=== PATIENT | male | born 1965 | race Caucasian/White ===

== ENCOUNTER → 2017-03-07 | Outpatient (CLI) | payer OTHER ==
[~2017-03-07] MED LIST: AMLO5TAB2 PO; LISI-515 PO; MULT-135 PO; SUBO8MIS SL
[2017-03-07 09:00] LABS: AUTOMATED NEUTROPHIL # 5.6 TH/MM3 (1.8-7.7); BASOPHIL # 0.1 TH/MM3 (0-0.2); BASOPHIL % 0.9 % (0.0-2.0); EOSINOPHIL # 0.1 TH/MM3 (0-0.4); EOSINOPHIL % 1.6 % (0.0-4.0); HEMATOCRIT 49.5 % (39.0-51.0); HEMO FLAGS DIFF FINAL; LYMPH % 26.1 % (9.0-44.0); LYMPHOCYTE # 2.3 TH/MM3 (1.0-4.8); MEAN CELL VOLUME 89.4 FL (80.0-100.0); MEAN CORPUSCULAR HEMOGLOBIN 30.3 PG (27.0-34.0); MEAN CORPUSCULAR HGB CONC 33.9 % (32.0-36.0); MONO % 8.6 % (0.0-8.0); NEUT % 62.8 % (16.0-70.0); PLATELET COUNT 206 TH/MM3 (150-450); RED BLOOD COUNT 5.54 MIL/MM3 (4.50-5.90); RED CELL DISTRIBUTION WIDTH 13.2 % (11.6-17.2)
[2017-03-07 09:02] LABS: BLOOD, URINE NEG (NEG); COMMENT (UR) CULT NOT INDICATED; CULTURE IF INDICATED CULT NOT INDICATED; GLUCOSE,URINE NEG (NEG); KETONE, URINE NEG (NEG); MUCUS URINE FEW /lpf (OCC); NITRITE,URINE NEG (NEG); URINE COLOR YELLOW (YELLW/STRAW)
--- NOTE | 2017-03-07 09:11 | RADRPT ---
EXAM DATE/TIME: 03/07/2017 08:45 [place] COMPARISON: No previous studies available for comparison. INDICATIONS : Evaluate for Pneumonia, Pneumothorax, and communicable diseases. Pre-op mass on buttocks. MEDICAL HISTORY : None. SURGICAL HISTORY : None. ENCOUNTER: Initial ACUITY: 1 day PAIN SCORE: 0/10 LOCATION: Bilateral chest FINDINGS: PA and lateral views of the chest demonstrate the lungs to be symmetrically aerated without evidence of mass, infiltrate or effusion. The cardiomediastinal contours are unremarkable. Osseous structure s are intact. CONCLUSION: No acute disease. Jovany Jones MD FACR on March 07, 2017 at 9:09 Board Certified Radiologist. This report was verified electronically.
[2017-03-07 09:52] LABS: ALKALINE PHOSPHATASE 81 U/L (45-117); ALT (GPT) 49 U/L (12-78); ANION GAP 7 MEQ/L (5-15); AST (GOT) 17 U/L (15-37); BICARBONATE 28.8 MEQ/L (21.0-32.0); BLOOD UREA NITROGEN 17 MG/DL (7-18); CHLORIDE 102 MEQ/L (98-107); GLOMERULAR FILTRATION RATE 94 ML/MIN (>89); GLUCOSE,FASTING 105 MG/DL (74-99); POTASSIUM 4.3 MEQ/L (3.5-5.1); SODIUM (NA) 138 MEQ/L (136-145); TOTAL BILIRUBIN ADULT 0.3 MG/DL (0.2-1.0)
--- NOTE | 2017-03-07 22:03 | EKG ---
Date Performed: 03/07/2017 Time Performed: 08:16:36 PTAGE: 51 years EKG: Sinus rhythm NONSPECIFIC T-WAVE ABNORMALITY BORDERLINE ECG NO PREVIOUS TRACING DOCTOR: Tre Sanchez Interpretating Date/Time 03/07/2017 22:02:27
== END ==
LOC: CPRE 07:54
PROVIDERS: ATTEND Colon & Rectal Surgery
DX: Z01.812 Encounter for preprocedural laboratory examination (principal); Z01.811 Encounter for preprocedural respiratory examination; Z01.810 Encounter for preprocedural cardiovascular examination; D36.7 Benign neoplasm of other specified sites; R94.31 Abnormal electrocardiogram [ECG] [EKG]
CPT/HCPCS: 36415; 71020; 80053; 81001; 85025; 93005

== ENCOUNTER 2017-03-12 12:13 | Observation (INO) | payer OTHER ==
[~2017-03-12] VITALS: Ht 185.4 cm; Wt 135.6 kg
--- NOTE | 2017-03-12 10:05 | PD.HP.UP ---
H&P Update Note The Pre-Admit History and Physical Examination regarding the above named patient was reviewed (including, but not limited to, vital signs, heart, lungs, co-morbid conditions), and upon re-examination it is noted that: the patient's condition has not significantly changed since the last examination. Mikel Narvaez MD Mar 12, 2017 10:05
[~2017-03-12 12:13] MED LIST changes: +LACTATED RINGER'S 1000 ML INJ 1,000 ML IV ONE; +NEOSTIGMINE 3 MG/3 ML SYR IV ONE; +ONDANSETRON HCL 4 MG/2 ML VIAL IV PUSH ONE; +PROPOFOL 200 MG/20 ML AMP IV ONE
[2017-03-12 12:59] VITALS: BP 148/83; PULSE 82; RESP 18; TEMP 99.2; O2SAT 93
[2017-03-12] MEDS ORDERED: CHLORHEXIDINE GLUCONATE 2 % 1 PACK (2 CLOTHS) TOPICAL PRN (13:15)
[2017-03-12] MEDS ORDERED: LACTATED RINGER'S 1000 ML IV PRN (13:15)
[2017-03-12] MEDS ORDERED: POVIDONE IODINE 5% (ANTISEPSIS KIT) 4 APPLICATIONS EACH NARE PRN (13:15)
[2017-03-12] MEDS ORDERED: METOPROLOL TARTRATE 25 MG TAB PO PRN (13:15)
[2017-03-12] MEDS ORDERED: SODIUM CHLORID 0.9% 500 ML IV PRN (13:15)
[2017-03-12] MEDS ORDERED: INSULIN HUMAN REGULAR 1,000 UNITS/10 ML VIAL SQ PRN (13:15)
[2017-03-12] MEDS ORDERED: BUPIVACAINE/EPINEPHRINE 0.5% PF 30 ML VIAL ONE (13:24)
[2017-03-12] MEDS ORDERED: LIDOCAINE 1%/EPINEPHrine 1:100,000 SOLN 20 ML VIAL ONE (13:25)
[2017-03-12] MEDS ORDERED: BACITRACIN TOP OINT 15 GM TUBE ONE (13:25)
[2017-03-12] MEDS ORDERED: FAMOTIDINE 20 MG/2 ML VIAL ONE (14:00)
[2017-03-12] MEDS ORDERED: ACETAMINOPHEN 1000 MG/100 ML VIAL IV ONE (14:00)
[2017-03-12] MEDS ORDERED: MIDAZOLAM HCL 2 MG/2 ML VIAL ONE (14:01)
[2017-03-12] MEDS ORDERED: fentaNYL CITRATE 250 MCG/5 ML AMP ONE ×2 (14:01→15:17)
[2017-03-12] MEDS ORDERED: metroNIDAZOLE 500 MG INJ 100 ML IV ONE (14:13)
[2017-03-12] MEDS ORDERED: ceFAZolin INJ 1,000 MG VIAL ONE (14:14)
[2017-03-12] MEDS ORDERED: SODIUM CHLOR 0.9% 250 ML INJ 250 ML ONE (14:14)
[2017-03-12] MEDS ORDERED: POTASSIUM CHLOR 20 MEQ PREMIX 100 ML IV PRN (15:45)
[2017-03-12] MEDS ORDERED: SODIUM CHLORIDE 0.9% FLUSH 5 ML FLUSH IVF PRN (15:45)
[2017-03-12] MEDS ORDERED: POTASSIUM CHLOR 40 MEQ PREMIX 100 ML IV PRN (15:45)
[2017-03-12] MEDS ORDERED: ENALAPRILAT 2.5 MG/2 ML VIAL IV PRN (15:45)
[2017-03-12] MEDS ORDERED: KETOROLAC TROMETHAMINE 30 MG/ML (IVP) VIAL IVP PRN (15:45)
[2017-03-12] MEDS ORDERED: BENZOCAINE 6 MG/MENTHOL 10 MG LOZENGE BUCCAL PRN (15:45)
[2017-03-12] MEDS ORDERED: NALOXONE HCL 0.4 MG/ML AMP IV PRN (15:45)
[2017-03-12] MEDS ORDERED: Post-op Orders (for Pharmacy) MISC XX ONE (15:45)
--- NOTE | 2017-03-12 15:50 | HHI.PR ---
Immediate Post Op Note Procedure Date: Mar 12, 2017 Pre Op Diagnosis: Mass left buttock Post Op Diagnosis: same Surgeon: Mikel Narvaez Data Governance Consultant(s): Polo Procedure: EUA, excision large buttock mass Findings: large cystic mass lt buttock, not adherent to rectum or urethra Complications: none Specimen(s) removed: Mass buttock Estimated blood loss: 15cc Anesthesia: General Drains: EDISON IVF Patient to: PACU Patient Condition: Good Mikel Narvaez MD Mar 12, 2017 15:50
[2017-03-12] MEDS ORDERED: ACETAMINOPHEN/HYDROcodone 325 MG/5 MG TAB PO PRN ×2 (16:00)
[2017-03-12] MEDS ORDERED: ONDANSETRON HCL 4 MG/2 ML VIAL IV PRN (16:00)
[2017-03-12] MEDS ORDERED: ACETAMINOPHEN 325 MG TAB PO PRN (16:00)
[2017-03-12] MEDS ORDERED: ENALAPRILAT 1.25 MG/ML VIAL IV PRN (16:00)
[2017-03-12] MEDS: MORPHINE SULFATE 30 MG/30 ML PCA IV SCH ×2 (16:16→20:47)
[2017-03-12] MEDS: D5-NS + KCL 20 MEQ INJ 1,000 ML IV SCH (16:30)
[2017-03-12 18:14] VITALS: BP 137/82; PULSE 72; RESP 18; TEMP 96.9; O2SAT 92
[2017-03-12 20:17] VITALS: O2SAT 92
[2017-03-12] MEDS: metroNIDAZOLE 500 MG INJ 100 ML IV SCH (20:51)
[2017-03-12] MEDS: SODIUM CHLORIDE 0.9% FLUSH 5 ML FLUSH IVF SCH (20:54)
[2017-03-12 21:52] VITALS: BP 119/56; PULSE 81; RESP 19; TEMP 98; O2SAT 95
[2017-03-12] MEDS: PCA - TOTAL MG MORPHINE DELIVERED PER SHIFT SCH (22:00)
[2017-03-13] VITALS: BP 135/60; PULSE 60; RESP 19; TEMP 99.4; O2SAT 95
[2017-03-13] MEDS: D5-NS + KCL 20 MEQ INJ 1,000 ML IV SCH (00:42)
[2017-03-13 04:00] VITALS: BP 128/67; PULSE 72; RESP 19; TEMP 98.2; O2SAT 94
[2017-03-13] MEDS: metroNIDAZOLE 500 MG INJ 100 ML IV SCH (05:51)
[2017-03-13] MEDS: PCA - TOTAL MG MORPHINE DELIVERED PER SHIFT SCH (05:52)
[2017-03-13 08:00] VITALS: BP 129/64; PULSE 73; RESP 18; TEMP 98; O2SAT 92
[2017-03-13] MEDS: SODIUM CHLORIDE 0.9% FLUSH 5 ML FLUSH IVF SCH (08:29)
[2017-03-13] MEDS ORDERED: PANTOPRAZOLE SODIUM 40 MG VIAL IVP SCH (09:00)
[2017-03-13] MEDS ORDERED: PANTOPRAZOLE SOD 40 MG DELAYED RELEASE TAB PO SCH (09:00)
[2017-03-13 09:34] VITALS: O2SAT 93
--- NOTE | 2017-03-14 13:51 | MP ---
cc: SLY HAYS MD, ANDREW H. M.D. DATE OF SURGERY: 03/12/2017 PREOPERATIVE DIAGNOSIS Mass of the left buttock. PROCEDURE Examination under anesthesia with excision of large left buttock mass. POSTOPERATIVE DIAGNOSIS Mass of the left buttock. SURGEON Dr. Narvaez BULLARD OPERATOR Dr. Sly Hays DETAILS OF PROCEDURE The patient was placed in the supine position. After adequate general anesthesia he was turned and placed in the prone jackknife position. His buttocks were taped apart, prepped with Betadine solution and draped in the usual sterile fashion. With Dr. Hays's assistance a radial incision was made in the left lateral quadrant extending over the buttock. A large mass was encountered in the subcutaneous tissues. It did appear to be somewhat cystic in nature. There did not appear to be any solid mass palpable. Skin flaps were raised both above and below the mass and it was elevated up off the gluteal fascia. Dissection proceeded with electrocautery staying fairly close to the capsule getting some large varicose veins with electrocautery for hemostasis. As it approached the medial aspect of the dissection the rectum was easily palpated and preserved. Some of the sphincter muscle was taken off the mass. The dissection then proceeded up along the side of the rectum getting to the end of the mass which did not appear to be attached to any other vital structure. A Suero catheter was palpated and was not in the operative field at any time. After complete excision the capsule of the mass was intact. The defect was irrigated copiously with normal saline. Adequate hemostasis achieved. A Jaime-Casas drain was placed into the mass and brought up through a stab wound in the left buttock, secured to the skin with a nylon suture. The defect was then closed in several layers using interrupted 3-0 Vicryl sutures to reapproximate some of the space and closed the fatty tissue. The subcu tissue was irrigated copiously and the skin closed with a running subcuticular Vicryl suture. The wound area was washed with normal saline and dried, sterile dressing of Telfa and gauze applied. The patient tolerated the procedure quite well and was brought to the recovery room in stable condition. Sponge and needle counts were correct at the end of the procedure. MD DINAH Villanueva/KATHERIN /4:49 PM /1:45 PM
== END 2017-03-13 11:40 | disposition home or self-care (01) ==
LOC: HSDC 12:13 → INTOOBSV 15:44 → HSDI 15:44 → N07A 17:33
PROVIDERS: ADMIT Colon & Rectal Surgery; ATTEND Colon & Rectal Surgery
DX: D36.7 Benign neoplasm of other specified sites (principal); I10 Essential (primary) hypertension; F17.200 Nicotine dependence, unspecified, uncomplicated
CPT/HCPCS: 00300; 11406; 88309; 88341; 88342; 94150; G0378; J0131; J0690; J2250; J2270; J2405; J2710; J3010; J3480; J7050; J7120; 88305; 88307